=== PATIENT | female | born 1995 | race African-American/Black ===

== ENCOUNTER 2024-09-16 23:55 | Emergency (ER) | payer MEDICAID ==
[~2024-09-16] VITALS: Ht 170.2 cm; Wt 135.0 kg
[2024-09-17 00:01] VITALS: BP 135/72; PULSE 64; RESP 16; TEMP 36.9; O2SAT 100
[2024-09-17] MEDS ORDERED: CEPH500C2 MT (14:12)
[2024-09-17] MEDS ORDERED: PNV1TABL76 MT (14:12)
== END 2024-09-17 03:48 | disposition left against medical advice (07) ==
LOC: ER 23:55
DX: L02.416 Cutaneous abscess of left lower limb (principal); Z53.21 Procedure and treatment not carried out due to patient leaving prior to being seen by health care provider

== ENCOUNTER 2024-09-17 11:57 | Emergency (ER) | payer MEDICAID ==
[~2024-09-17] VITALS: Ht 170.2 cm; Wt 132.0 kg
[2024-09-17 12:05] VITALS: O2SAT 97
[2024-09-17] MEDS: BACITRACIN ZINC OINT UDPKT TOP ONE (12:54)
[2024-09-17] MEDS: LIDOCAINE HCL/EPINEPHRINE 1%-EPI 1:100,000 20ML VIAL INFIL ONE (12:54)
[2024-09-17 13:27] LABS: EOSINOPHILS % 0.9 % (0.0-5.0); HEMATOCRIT. 33.4 % (36.0-48.0); HEMOGLOBIN. 11.4 g/dL (12.0-16.0); LYMPHOCYTES % 24.2 % (20.0-50.0); MEAN CORPUSCULAR HGB CONC 34.2 g/dL (31.0-37.0); MEAN CORPUSCULAR VOLUME 93.7 fL (81.0-99.0); MEAN PLATELET VOLUME 8.2 fl (7.4-10.4); MONOCYTES % 7.1 % (2.0-8.0); NEUTROPHILS % 66.8 % (40.0-76.0); PLATELET 317 x1000/uL (130-400); RED BLOOD CELL COUNT 3.57 mill/uL (4.2-5.4); RED CELL DISTRIBUTION WIDTH 14.1 % (11.6-14.6); WHITE BLOOD COUNT 14.1 x1000/uL (4.5-11.0)
[2024-09-17 13:37] LABS: CHLORIDE 105 mEq/L (98-107); POTASSIUM 3.9 mEq/L (3.5-5.1); SODIUM 139 mEq/L (136-145)
[2024-09-17 13:38] LABS: CARBON DIOXIDE 25 mEq/L (21-32)
[2024-09-17 13:43] LABS: CREATININE 0.7 mg/dL (0.6-1.0); GLUCOSE 94 mg/dL (70-105); UREA NITROGEN BLOOD 7 mg/dL (9-23)
[2024-09-17 13:45] LABS: CLARITY URINE CLEAR (CLEAR); COLOR URINE YELLOW (YELLOW); GLUCOSE URINE NEGATIVE (NEGATIVE); KETONES URINE TRACE (NEGATIVE); LEUKOCYTE ESTERASE URINE TRACE (NEGATIVE); NITRITE URINE NEGATIVE (NEGATIVE); OCCULT BLOOD URINE NEGATIVE (NEGATIVE); PH URINE 7.5 (4.5-8.0); PROTEIN URINE NEGATIVE (NEGATIVE)
[2024-09-17 13:45] LABS: ALANINE AMINOTRANSFERASE < 7 IU/L (10-49); ASPARTATE AMINOTRANSFERASE 10 IU/L (<34); BILIRUBIN DIRECT < 0.1 mg/dL (<=3.0); BILIRUBIN TOTAL 0.3 mg/dL (0.1-1.0); PROTEIN TOTAL 6.9 g/dL (6.0-8.3)
[2024-09-17 13:56] LABS: BACTERIA URINE 1+; RBC URINE 0-2 /hpf (0-2); SQUAMOUS EPITHELIAL CELL URINE 2+ /lpf (RARE/1+); YEAST URINE NONE SEEN
[2024-09-17] MEDS ORDERED: CEPH500C2 MT (14:12)
[2024-09-17] MEDS ORDERED: PNV1TABL76 MT (14:12)
[2024-09-17 15:27] VITALS: BP 122/66; PULSE 84; RESP 16; TEMP 36.8; O2SAT 98
== END 2024-09-17 15:30 | disposition home or self-care (01) ==
LOC: ER 11:57
DX: L02.416 Cutaneous abscess of left lower limb (principal); Z33.1 Pregnant state, incidental
CPT/HCPCS: 80076; 80048; 81003; 81025; 84702; 83690; 85025; 86850; 86900; 86901; 36415; 76801; 76817; 99284; J2004; Z7610 ×6

== ENCOUNTER 2024-10-15 17:49 | Emergency (ER) | payer MEDICAID ==
[~2024-10-15] VITALS: Ht 170.2 cm; Wt 134.0 kg
[~2024-10-15 17:49] MED LIST: CEPH500C2 MT; PNV1TABL76 MT
[2024-10-15 17:56] VITALS: O2SAT 99
[2024-10-15 19:36] LABS: CLARITY URINE CLEAR (CLEAR); COLOR URINE YELLOW (YELLOW); GLUCOSE URINE NEGATIVE (NEGATIVE); KETONES URINE NEGATIVE (NEGATIVE); LEUKOCYTE ESTERASE URINE NEGATIVE (NEGATIVE); NITRITE URINE NEGATIVE (NEGATIVE); OCCULT BLOOD URINE NEGATIVE (NEGATIVE); PH URINE 6.5 (4.5-8.0); PROTEIN URINE NEGATIVE (NEGATIVE)
[2024-10-15] MEDS ORDERED: PREN1COM12 MT (20:26)
[2024-10-15 20:27] VITALS: BP 123/66; PULSE 84; RESP 16; TEMP 36.8; O2SAT 99
== END 2024-10-15 20:33 | disposition left against medical advice (07) ==
LOC: ER 17:57
DX: O26.891 Other specified pregnancy related conditions, first trimester (principal); R10.30 Lower abdominal pain, unspecified; Z3A.10 10 weeks gestation of pregnancy; Z79.899 Other long term (current) drug therapy
CPT/HCPCS: 76801; 81003; 81025; 99284